=== PATIENT | male | born 1955 | race Caucasian/White ===

== ENCOUNTER → 2020-08-15 07:50 | Outpatient (ROUT) | payer MEDICARE, SELFPAY ==
[2020-08-15 07:54] LABS: COVID19 Sendout Not Detected (Not Detect)
== END ==
PROVIDERS: Visit Provider Specialist
DX: Z01.818 Encounter for other preprocedural examination (principal)
CPT/HCPCS: 87635

== ENCOUNTER 2020-08-16 07:40 | Day surgery (SDC) | payer MEDICARE, SELFPAY ==
[2020-08-12 11:57] VITALS: BMI 27.6
[2020-08-16] VITALS (11 sets, daily range): BP systolic 117–144; BP diastolic 64–89; PULSE 71–87; RESP 12–20; TEMP 36.1–36.6; O2SAT 94–100; BMI 27.8
--- NOTE | 2020-08-16 | PATH_ITS ---
[facility] Accession Number: [id number] . 01 Material submitted: . body - LEFT HYDROCELE SAC . 01 Clinical history: . [facility] [place] [facility] ONLY . 02 Diagnosis: Left Hydrocele Sac, Biopsy: Fibrin-lined fibrovascular tissue. Spermatozoa present. No evidence of neoplasia. MRV 08/20/2020 1329 Local . 02 Electronically signed: . Odalis Omer MD, Pathologist NPI- [id number] . 01 Gross description: . The specimen is received in formalin, labeled left hydrocele sac, and consists of multiple may-pink to pink-purple, fibromembranous fragments of tissue measuring 7.0 x 4.5 x 4.0 cm in aggregate. Telecom Sales Consultant sections are submitted in cassettes [id number]. ([id number]) /R 08/17/2020 1408 Local . 02 Pathologist provided ICD-10: N43.3 . 02 CPT . 601960 Performed at: 01 [facility] [address], [place], [place] [id number] MD Jaquan Ch MD Phone: [phone] Performed at: 02 [facility] [address] [place], [place] [id number] MD Odalis Omer MD Phone: [phone]
[2020-08-16] MEDS: LACTATED RINGERS 1,000 ML 42 ML IV ×2 (08:13→10:20)
--- NOTE | 2020-08-16 08:42 | PM.PREOP ---
Pre-operative Note Interval Note History & Physical reviewed/Exam performed by Physician: Yes Changes to H&P: No
[2020-08-16] MEDS: CEFAZOLIN 2 GM/100 ML FROZ.PIGGY IV (09:13)
[2020-08-16] MEDS: NEOMYCIN/POLYMYXIN/BACITRA UD OINT 1 EACH TOP (09:40)
[2020-08-16] MEDS: BUPIVACAINE LIPOSOME 266 MG/20 ML VIAL INJ (09:40)
--- NOTE | 2020-08-16 09:43 | SUR.OPER ---
Supine on padded OR bed, head on pillow, arms secured on padded arm boards at <90 degrees abduction, legs uncrossed, safety belt at thigh, tape over blanket over lower legs.
--- NOTE | 2020-08-16 10:54 | PM.OP.1 ---
Operative Date/Time/Diagnoses Date of procedure: 08/16/20 Time of procedure: 10:55 Pre-op diagnosis: Left hydrocele Post-op diagnosis: same Procedure & Clinicians Procedure: 1. Left hydrocelectomy Same procedure as scheduled: Yes Indications: 1. Large left hydrocele Surgeon: Robson Culver Click Yes if Unassisted: Yes Anesthesia Type: General and Local (1.33% Exparel) Operative Notes Findings: Large multi septated hydrocele with turbid fluid. Total volume 580 cc. Closure Type: primary Specimen(s): other (Hydrocele sac) Applied: drain(s) (10 Turkish Omid drain) Estimated Blood Loss (mL): 5 Blood products transfused: none Tourniquet time (min): 0 Procedure in detail: Patient was positioned supine and the abdomen genitalia and groin were then prepped and draped in sterile fashion. The midline scrotal raphe was then infiltrated local anesthetic. An 8 cm midline incision was made in the rest Fe using the needle-tip cautery pen. Subcutaneous dartos fascia was divided using the same technique. The surface of the tunica vaginalis was then encountered and using blunt dissection the appropriate plane was developed circumferentially and the entire hydrocele sac and contents were delivered from the left hemiscrotum. The tunica vaginalis was then divided in the midline and the contents were drained. Multiple septated loo were encountered as noted above aching dissection and repair all the more challenging. Majority of the hydrocele sac was excised and submitted to pathology. Because of the multiple septated nature a books salesperson repair was not possible. The testicle was repositioned within the left hemiscrotum anatomically and 2 single interrupted 2 0 Monocryl used to fixate the testis in the anatomic position within the left hemiscrotum. Local anesthetic was then used to infiltrate the scrotal wall and skin the left inferior lateral aspect. A fenestrated 10 Turkish Omid drain was then passed from within to without at the site the inner tip was trimmed to appropriate length and position of the left hemiscrotum. The drain was secured at the level of skin with 2 0 silk using a VII will technique. Next, the dartos fascia of the midline scrotum was then closed using a running 2 0 Monocryl. The skin was then reapproximated using a running horizontal mattress of 4 0 Monocryl. The drain was placed to bulb self suction. Antibiotic ointment was applied to the incision line and a generous amount of fluff gauze were applied to the scrotum. The patient was then fitted with an athletic supporter. Patient was then awakened transferred to [facility] and transferred recovery in stable condition. Complications: none Post-operative Condition: stable Disposition: PACU Plan for aftercare: Discharge home
[2020-08-16] MEDS: HYDROMORPHONE 2 MG INJ IV ×2 (11:00→11:22)
[2020-08-16] MEDS: OXYCODONE IR 5 MG TABLET PO (11:33)
== END 2020-08-16 12:30 | disposition home or self-care (01) ==
PROVIDERS: PCP Family Medicine; Referring Provider Family Medicine; Visit Provider Specialist
PROC: (CPT 55040; principal; 2020-08-16 09:00)
DX: N43.3 Hydrocele, unspecified (principal); N40.0 Benign prostatic hyperplasia without lower urinary tract symptoms
CPT/HCPCS: 55040; C9290; J0690; J1100; J1170; J2405; J2704; J3010